=== PATIENT | female | born 1970 | race Caucasian/White ===

== ENCOUNTER 2023-08-23 20:25 | Emergency (ER) | payer BC, SELFPAY ==
[2023-08-23 20:31] VITALS: BP 151/85; PULSE 101; RESP 16; TEMP 37.3; O2SAT 96
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
[2023-08-23 21:35] VITALS: BP 144/83; PULSE 99; RESP 16; O2SAT 96
--- NOTE | 2023-08-23 21:50 | PC.NURSE ---
Pt was sent home with 2tabs [place] 5/325 per MD order.
--- NOTE | 2023-08-24 09:23 | DCPLANNER ---
A message was sent to ortho on 08/24/23 at 0923. [facility] to contact patient for appt
== END 2023-08-23 21:46 | disposition home or self-care (01) ==
PROVIDERS: Emergency Provider Emergency Medicine
DX: S83.91XA Sprain of unspecified site of right knee, initial encounter (principal); V86.69XA Passenger of other special all-terrain or other off-road motor vehicle injured in nontraffic accident, initial encounter
CPT/HCPCS: 29530; 73502; 73562; 99283; E0114